=== PATIENT | female | born 1980 | race Caucasian/White ===

== ENCOUNTER 2024-04-13 13:42 | Outpatient (REF) | payer OTHER, SELFPAY ==
[2024-04-13 14:30] LABS: Internal Control Within Normal Limits; SARS-CoV-2 Ag POSITIVE (NEGATIVE)
== END 2024-04-13 13:43 | disposition home or self-care (01) ==
LOC: LAB 13:42
PROVIDERS: PCP Nurse Practitioner Family; Visit Provider Nurse Practitioner Family
DX: B34.9 Viral infection, unspecified (principal)
CPT/HCPCS: 87811

== ENCOUNTER 2024-06-30 06:42 | Outpatient (OUT) | payer OTHER, SELFPAY ==
--- OUTSIDE RECORDS SUMMARY | 2024-06-30 06:44 | XMS_ITS | CCD ---
Author Organization [facility] Care Team Providers Care Baseball Player Name Role Phone NO FAMILY, PHYSICIAN Primary Care Provider Unava MD Colton Banerjee Emergency Provider [phone] DO Zeke Leija Emergency Provider MD Nigel Jason Admit Provider MD Nigel Jason Attending Provider Nigel Jason Admitting Unavailable Nigel Jason Attending Unavailable NO FAMILY, PHYSICIAN Primary Care Unavailable Colton Rushing Attending Unavailable NO FAMILY, PHYSICIAN Primary Care Unavailable Colton Rushing Admitting Unavailable Problems Active Problems Problem Classification Problem Date Documented Da te Episodic/Chronic Anxiety disorders (4 sources) Anxiety; Translations: [Anxiety disorder, unspecified] Onset: 05-13-2022 05-13-2022 Chronic Mood disorders (4 sources) Depressive disorder; Translations: [Depression] Onset: 05-13-2022 05-11-2022 Chronic Mood disorders (1 source) Mood disorders; Translations: [Depression, unspecified] Onset: 05-13-2022 Past or Other Problems Problem Classification Problem Date Documented Da te Episodic/Chronic Suicide and intentional self-inflicted injury (4 sources) Suicidal thoughts; Translations: [Suicidal ideations] Onset: 05-13-2022 05-11-2022 Episodic Results Test Name Value Interpretation Reference Range Facility ECG 12 lead ECGon 05-14-2022 ECG 12 lead ECG [facility] [place] [address] [place] [address] Electrocardiograph Report Signed Patient: Cecile Benitez MR#: [id number] : [id number] Acct:[id number] Age/Sex: 42 / F ADM Date: 05/13/22 Loc: Room: [address] [place] [address] Type: DIS IN Attending Dr: Nigel Jason MD Ordering Provider: Nigel Jason MD Date of Service: 05/14/22 ECG/ECG 12 lead ECG: baseline for antipsychotics Copies to: Test Reason : Blood Pressure : / mmHG Vent. Rate : 052 BPM Atrial Rate : 052 BPM P-R Int : 132 ms QRS Dur : 084 ms QT Int : 410 ms P-R-T Axes : 038 073 049 degrees QTc Int : 381 ms Sinus bradycardia Otherwise normal ECG No previous ECGs available Confirmed by ARTEM GANN MD ([id number]) on 05/15/2022 7:56:35 AM Referred By: Electronically Signed By:ARTEM GANN MD Transcribed By: MUS Signed By Artem Gann MD [id number] [facility] Lipid Panelon 05-14-2022 Cholesterol [Mass/Vol] 207 mg/dL High 140-200 [facility] Comment on above: Result Comment: Chol less than 200 mg/dl low risk Chol 201-239 mg/dl borderline risk Chol 240 mg/dl and greater high risk Performed By: #### C OVID-19 CHELY SOFIANEG #### [facility] [address] Cholesterol in HDL [Mass/Vol] 41 mg/dL Normal 35-85 [facility] Comment on above: Result Comment: HDL CHOL ATP-III CLASSIFICATION Cardiovascular Risk HDL > or equal to 60 mg/dL LOW HDL < 40 mg/dL HIGH Performed By: #### C OVID-19 CHELY SOFIANEG #### [facility] [address] [place] [id number] [facility] Cholesterol.total/Katie sterol in HDL [Mass ratio] 5.0 {ratio} Normal <5.0 [facility] Comment on above: Performed By: #### C OVID-19 CHELY SOFIANEG #### [facility] [address] [place] [id number] [place] LDL Cholesterol,Calculated 135 mg/dL High 0-100 [facility] Comment on above: Result Comment: LDL ATP III CLASSIFICATION LDL less than 100 mg/dL Optimal LDL 100-129 mg/dL Near or above optimal LDL 130-159 mg/dL Borderline high LDL 160-189 mg/dL High LDL greater than 189 mg/dL Very high Performed By: #### C OVID-19 CHELY SOFIANEG #### [facility] [address] [place] [address] Triglyceride w/Reflex 153 mg/dL High 35-149 [facility] Comment on above: Result Comment: TRIG ATP III CLASSIFICATION TRIG less than 150 mg/dL Normal TRIG 150-199 mg/dL Borderline high TRIG 200-500 mg/dL High TRIG greater than 500 mg/dL Very high Standard traceable to the Center for Disease Conrtrol and Prevention (CDC) test method. Performed By: #### C OVID-19 CHELY SOFIANEG #### [address] VLDL CHOLESTEROL 30 mg/dL Normal [facility] Comment on above: Performed By: #### C OVID-19 CHELY SOFIANEG #### [address] Thyroid Stim Hormone w/Rflxo n 05-14-2022 Thyroid Stim Hormone w/Rflx 1.05 u[iU]/mL Normal 0.45-5.33 [facility] Comment on above: Performed By: #### C OVID-19 CHELY SOFIANEG #### [address] Vitamin D 25 Hydroxy Totalon 05-14-2022 Vitamin D 25 Hydroxy Total 21.9 ng/mL Low 30-100 [facility] Comment on above: Result Comment: HANSEL MIN D STATUS 25(OH)VITAMIN D RANGE (ng/mL) Deficient <20 Insufficient 20 to <30 Sufficient 30 to 100 Reference: Jean Paul MF,Jasmine NC, Tej-Harpal MCDERMOTT, et al. Evaluation,treatment, and prevention of vitamin D deficiency; an Endocrine Society clinical practice guideline. JCEM. 2010; 96(7):1911-30. PERFORMED BY: [place] [address] PATHOLOGIST CNP WALTER CEE M.D. Performed By: #### C OVID-19 CHELY SOFIANEG #### [facility] [address] [place] [id number] [facility] Amphetamine Screen Ql (U)Ord ered By: Zeke Leija on 05-13-2022 Amphetamines Ql (U) Negative Negative [facility] Barbiturates [Presence] in U rineOrdered By: Zeke Leija on 05-13-2022 Barbiturates Ql (U) Negative Negative [facility] Benzodiazepines [Presence] i n UrineOrdered By: Zeke Leija on 05-13-2022 Benzodiazepines Ql (U) Negative Negative [facility] COVID-19 Antigenon 2 COVID-19 Antigen Healthcare Worker?: N Reference Range: Negative Negative results, from patients with symptom onset beyond five days, should be treated as presumptive and confirmation with a molecular assay, if necessary, for patient management, may be performed. Negative results do not rule out COVID-19 and should not be used as the sole basis for treatment or patient management decisions, including infection control decisions. Negative results should be considered in the context of a patient's recent exposures, history and the presence of clinical signs and symptoms consistent with COVID-19. The Chely SARS Antigen RASHAUN does not differentiate between SARS-CoV and SARS-CoV-2. This test was developed and its performance characteristic determined by [facility] and validated at [facility]. This test has not been FDA cleared or approved. This test has been authorized by FDA under an Emergency Use Authorization (EUA). This test has been validated in accordance with the FDA's Guidance Document (Policy for Diagnostics Testing in Laboratories Certified to Perform High Complexity Testing under CLIA prior to Emergency Use Authorization for Coronavirus Disease-2019 during the Public Health Emergency) issued on November 25, 2019. This test is only authorized for the duration of time the declaration that circumstances exist justifying the authorization of the emergency use of in vitro diagnostic tests for detection of SARS-CoV-2 virus and/or diagnosis of COVID-19 infection under section 564(b)(1) of the Act, 21 U.S.C. 360bbb-3(b)(1), unless the authorization is terminated or revoked sooner. SARS-CoV+SARS-CoV-2 (COVID-19) Ag [Presence] in Respiratory specimen by Rapid immunoassay Negative for SARS Antigen by RASHAUN PERFORMED BY: [place] [address] PATHOLOGIST CNP WALTER CEE M.D. Normal [facility] Comment on above: Performed By: #### C OVID-19 CHELY, SOFIANEG #### [facility] [address] [place] [address] [place] COVID-19 SOFIAOrdered By: Bartolo Leija on 05-13-2022 SARS-CoV+SARS-CoV-2 (COVID-19) Ag IA.rapid Ql (Resp) Negative Negative [facility] Comment on above: This is a duplicate Chely SARS Antigen (RASHAUN) result to be used for statistical tracking purpose only. Cannabinoids [Presence] in U rine by Screen methodOrdered By: Zeke Leija on 05-13-2022 Cannabinoids Screen Ql (U) Negative Negative [facility] Comment on above: These are unconfirme d results and should not be used for legal purposes. Drug Cut-Off Concentration: AMPH 1000 ng/mL NIMISHA 200 ng/mL NEELA 200 ng/mL COCM 300 ng/mL OP 300 ng/mL PCP 25 ng/mL THC 20 ng/mL Drug Screen,Urineon 05-13-20 22 Amphetamine Screen,Urine Negative Normal Negative [facility] Comment on above: Performed By: #### C OVID-19 CHELY, SOFIANEG #### [facility] [address] [place] [address] [place] Barbiturate Screen,Urine Negative Normal Negative [facility] Comment on above: Performed By: #### C OVID-19 CHELY, SOFIANEG #### [facility] [address] [place] [address] [place] Benzodiazepines Screen,Urine Negative Normal Negative [facility] Comment on above: Performed By: #### C OVID-19 CHELY, SOFIANEG #### [facility] [address] [place] [address] [place] Cannabinoid Screen,Urine Negative Normal Negative [facility] Comment on above: Result Comment: Thes e are unconfirmed results and should not be used for legal purposes. Drug Cut-Off Concentration: AMPH 1000 ng/mL NIMISHA 200 ng/mL NEELA 200 ng/mL COCM 300 ng/mL OP 300 ng/mL PCP 25 ng/mL THC 20 ng/mL PERFORMED BY: [place] [address] PATHOLOGIST CNP WALTER CEE M.D. Performed By: #### C OVID-19 CHELY, SOFIANEG #### [facility] [address] [place] [address] Cocaine Screen,Urine Negative Normal Negative [facility] Comment on above: Performed By: #### C OVID-19 CHELY, SOFIANEG #### [facility] [address] [place] [address] Opiate Screen,Urine Negative Normal Negative [facility] Comment on above: Performed By: #### C OVID-19 CHELY, SOFIANEG #### [address] Phencyclidine Screen,Urine Negative Normal Negative [facility] Comment on above: Performed By: #### C OVID-19 CHELY, SOFIANEG #### [facility] [address] [place] [address] Laboratory - Drug toxicology Ordered By: Zeke Leija on 05-13-2022 Opiates Ql (U) Negative Negative [facility] No Panel InformationOrdered By: Zeke Leija on 05-13-2022 SARS Antigen (LFIA) [facility] Phencyclidine Screen Ql (U)O rdered By: Zeke Leija on 05-13-2022 Phencyclidine Ql (U) Negative Negative [facility] Chely Ag Negativeon 05-13-20 22 Chely Ag Negative Negative Normal Negative [facility] Comment on above: Result Comment: This is a duplicate Chely SARS Antigen (RASHAUN) result to be used for statistical tracking purpose only. PERFORMED BY: [place] [address] PATHOLOGIST CNP WALTER CEE M.D. Performed By: #### C OVID-19 CHELY, SOFIANEG #### [facility] [address] [place] [address] Urine cocaine detectionOrder ed By: Zeke Leija on 05-13-2022 Cocaine Ql (U) Negative Negative [facility] Albumin [Mass/volume] in Ser um or PlasmaOrdered By: Colton Rushing on 05-11-2022 Albumin [Mass/Vol] 4.3 g/dL Normal 3.2-5.5 [facility] Comment on above: Performed By: #### C BC, ETOH, CMP #### [address] Amphetamine Screen Ql (U)Ord ered By: Colton Rushing on 05-11-2022 Amphetamines Ql (U) Negative Negative [facility] Automated basophil %Ordered By: Colton Rushing on 05-11-2022 Basophils/100 WBC (Bld) 0.4 % Normal . [facility] Comment on above: Performed By: #### C BC, ETOH, CMP #### [address] Automated basophil countOrde red By: Colton Rushing on 05-11-2022 Basophils (Bld) [#/Vol] 0.0 10*3/uL Normal 0.0-0.2 [facility] Comment on above: Result Comment: PERF ORMED BY: [place] [address] PATHOLOGIST CNP WALTER CEE M.D. Performed By: #### C BC, ETOH, CMP #### [address] Automated blood lymphocyte c ount (number/volume)Ordered By: Colton Rushing on 05-11-2022 Lymphocytes (Bld) [#/Vol] 1.4 10*3/uL Normal 1.00-4.8 [facility] Comment on above: Performed By: #### C BC, ETOH, CMP #### [address] Automated blood lymphocyte c ount as percentage of total leukocytesOrdered By: Cloton Rushing on 05-11-2022 Lymphocytes/100 WBC (Bld) 14.8 % Normal . [facility] Comment on above: Performed By: #### C BC, ETOH, CMP #### [address] Automated blood monocyte cou ntOrdered By: Colton Rushing on 05-11-2022 Monocytes (Bld) [#/Vol] 0.6 10*3/uL Normal 0.0-0.8 [facility] Comment on above: Performed By: #### C BC, ETOH, CMP #### [address] Automated blood platelet cou nt (count/volume)Ordered By: Colton Rushing on 05-11-2022 Platelets (Bld) [#/Vol] 344 10*3/uL Normal 150-450 [facility] Comment on above: Performed By: #### C BC, ETOH, CMP #### [address] Automated blood platelet augustine n volume measurementOrdered By: Colton Rushing on 05-11-2022 Platelet mean volume (Bld) [Entitic vol] 8.1 fL Normal 6.3-10.7 [facility] Comment on above: Performed By: #### C BC, ETOH, CMP #### [address] Automated eosinophil %Ordere d By: Colton Rushing on 05-11-2022 Eosinophils/100 WBC (Bld) 0.2 % Normal . [facility] Comment on above: Performed By: #### C BC, ETOH, CMP #### [address] Automated eosinophil countOr dered By: Colton Rushing on 05-11-2022 Eosinophils (Bld) [#/Vol] 0.0 10*3/uL Normal 0.0-0.45 [facility] Comment on above: Performed By: #### C BC, ETOH, CMP #### [address] Automated erythrocyte distri bution width ratioOrdered By: Colton Rushing on 05-11-2022 Erythrocyte distribution width (RBC) [Ratio] 13.6 % Normal 11.9-15.3 [facility] Comment on above: Performed By: #### C BC, ETOH, CMP #### [address] Automated erythrocyte mean c orpuscular hemoglobin (mass per erythrocyte)Ordered By: Colton Rushing on 05-11-2022 MCH (RBC) [Entitic mass] 29.0 pg Normal 24.7-34.3 [facility] Comment on above: Performed By: #### C BC, ETOH, CMP #### [address] Automated erythrocyte mean c orpuscular volumeOrdered By: Colton Rushing on 05-11-2022 MCV (RBC) [Entitic vol] 86.4 fL Normal 80-100 [facility] Comment on above: Performed By: #### C BC, ETOH, CMP #### [address] Automated erythrocytes count in urine sediment (number/area)Ordered By: Colton Rushing on 05-11-2022 RBC Auto (Urine sed) [#/Area] 1-2 [HPF] 0-4 [facility] Automated leukocytes count i n urine sediment (number/area)Ordered By: Colton Rushing on 05-11-2022 WBC Auto (Urine sed) [#/Area] 50-100 [HPF] 0-4 [facility] Automated monocyte %Ordered By: Colton Rushing on 05-11-2022 Monocytes/100 WBC (Bld) 6.4 % Normal . [facility] Comment on above: Performed By: #### C BC, ETOH, CMP #### [address] Automated neutrophil %Ordere d By: Colton Rushing on 05-11-2022 Neutrophils/100 WBC (Bld) 78.2 % Normal . [facility] Comment on above: Performed By: #### C BC, ETOH, CMP #### [address] Barbiturates [Presence] in U rineOrdered By: Colton Rushing on 05-11-2022 Barbiturates Ql (U) Negative Negative [facility] Benzodiazepines [Presence] i n UrineOrdered By: Colton Rushing on 05-11-2022 Benzodiazepines Ql (U) Negative Negative [facility] Bilirubin Test strip Ql (U)O rdered By: Colton Rushing on 05-11-2022 Bilirubin Ql (U) Negative Negative [facility] Blood erythrocytes automated count (number/volume)Ordered By: Colton Rushing on 05-11-2022 RBC (Bld) [#/Vol] 5.24 10*6/uL High 3.60-5.00 [facility] Comment on above: Performed By: #### C BC, ETOH, CMP #### [address] Blood hemoglobin measurement (mass/volume)Ordered By: Colton Rushing on 05-11-2022 Hemoglobin (Bld) [Mass/Vol] 15.2 g/dL Normal 11.8-15.4 [facility] Comment on above: Performed By: #### C BC, ETOH, CMP #### [address] Blood leukocytes automated c ount (number/volume)Ordered By: Colton Rushing on 05-11-2022 WBC (Bld) [#/Vol] 9.6 10*3/uL Normal 4.5-11.0 [facility] Comment on above: Performed By: #### C BC, ETOH, CMP #### [address] Blood neutrophil count by au tomated method (number/volume)Ordered By: Colton Rushing on 05-11-2022 Neutrophils (Bld) [#/Vol] 7.5 10*3/uL Normal 1.8-7.7 [facility] Comment on above: Performed By: #### C BC, ETOH, CMP #### [address] COVID-19 Antigenon 2 COVID-19 Antigen Healthcare Worker?: N Reference Range: Negative Negative results, from patients with symptom onset beyond five days, should be treated as presumptive and confirmation with a molecular assay, if necessary, for patient management, may be performed. Negative results do not rule out COVID-19 and should not be used as the sole basis for treatment or patient management decisions, including infection control decisions. Negative results should be considered in the context of a patient's recent exposures, history and the presence of clinical signs and symptoms consistent with COVID-19. The Chely SARS Antigen RASHAUN does not differentiate between SARS-CoV and SARS-CoV-2. This test was developed and its performance characteristic determined by [facility] and validated at [facility]. This test has not been FDA cleared or approved. This test has been authorized by FDA under an Emergency Use Authorization (EUA). This test has been validated in accordance with the FDA's Guidance Document (Policy for Diagnostics Testing in Laboratories Certified to Perform High Complexity Testing under CLIA prior to Emergency Use Authorization for Coronavirus Disease-2019 during the Public Health Emergency) issued on November 25, 2019. This test is only authorized for the duration of time the declaration that circumstances exist justifying the authorization of the emergency use of in vitro diagnostic tests for detection of SARS-CoV-2 virus and/or diagnosis of COVID-19 infection under section 564(b)(1) of the Act, 21 U.S.C. 360bbb-3(b)(1), unless the authorization is terminated or revoked sooner. SARS-CoV+SARS-CoV-2 (COVID-19) Ag [Presence] in Respiratory specimen by Rapid immunoassay Negative for SARS Antigen by RASHAUN PERFORMED BY: [place] [address] PATHOLOGIST CNP WALTER CEE M.D. [facility] Comment on above: Performed By: #### S OPAL, COVID-19 CHELY #### [address] COVID-19 SOFIAOrdered By: Kayla Rushing on 05-11-2022 SARS-CoV+SARS-CoV-2 (COVID-19) Ag IA.rapid Ql (Resp) Negative Negative [facility] Comment on above: This is a duplicate Chely SARS Antigen (RASHAUN) result to be used for statistical tracking purpose only. Cannabinoids [Presence] in U rine by Screen methodOrdered By: Colton Rushing on 05-11-2022 Cannabinoids Screen Ql (U) Negative Negative [facility] Comment on above: These are unconfirme d results and should not be used for legal purposes. Drug Cut-Off Concentration: AMPH 1000 ng/mL NIMISHA 200 ng/mL NEELA 200 ng/mL COCM 300 ng/mL OP 300 ng/mL PCP 25 ng/mL THC 20 ng/mL Casts typing in urine sedime nt by light microscopyOrdered By: Colton Сергей on 05-11-2022 Casts LM Nom (Urine sed) None seen [LPF] None Seen [facility] Color Auto (U)Ordered By: Kayla Rushing on 05-11-2022 Color (U) Yellow Yellow [facility] Complete Blood Count Auto Di ffon 05-11-2022 Mean Corpuscular HGB Conc 33.6 g/dL Normal 32.0-35.0 [facility] Comment on above: Performed By: #### C BC, ETOH, CMP #### [address] Complete Blood Count Auto Di ffOrdered By: Colton Rushing on 05-11-2022 Nucleated RBC/100 WBC (Bld) [Ratio] 0.1 % Normal 0-0.5 [facility] Comment on above: Performed By: #### C BC, ETOH, CMP #### [facility] [address] [place] [address] Comprehensive Metabolic Pane oralia 05-11-2022 ALT [Catalytic activity/Vol] 29 U/L Normal 10-60 [facility] Comment on above: Performed By: #### C BC, ETOH, CMP #### [facility] [address] [place] [address] [place] Creatinine Clr Calc Pharmacy 71.91 Normal [facility] Comment on above: Result Comment: PERF ORMED BY: [place] [address] PATHOLOGIST CNP WALTER CEE M.D. Performed By: #### C BC, ETOH, CMP #### [address] Estimated GFR ( Kirsten > 60 Normal [facility] Comment on above: Result Comment: GFR estimated reference range: According to KDOQI guidelines, <60 ml/min/1.73m2 is sufficient to diagnose a patient with chronic kidney disease. Performed By: #### C BC, ETOH, CMP #### [facility] [address] [place] [address] [place] Estimated GFR (Non- Am 58 Normal [facility] Comment on above: Performed By: #### C BC, ETOH, CMP #### [facility] [address] [place] [address] [place] Dipstick and Microscopicon 0 05-11-2022 Appearance (U) Cloudy Critically abnormal Clear [facility] Comment on above: Order Comment: Name Collection Type:: Clean-Voided Midstream Performed By: #### U RDS, CUU, UHCG, ADDONUAPLUS #### [address] Bacteria,Urine 1+ High None Seen [facility] Comment on above: Order Comment: Name Collection Type:: Clean-Voided Midstream Performed By: #### U RDS, CUU, UHCG, ADDONUAPLUS #### [facility] [address] [place] [address] [place] Bilirubin,Urine Negative Normal Negative [facility] Comment on above: Order Comment: Name Collection Type:: Clean-Voided Midstream Performed By: #### U RDS, CUU, UHCG, ADDONUAPLUS #### [facility] [address] [place] [address] [place] Color (U) Yellow Normal Yellow [facility] Comment on above: Order Comment: Name Collection Type:: Clean-Voided Midstream Performed By: #### U RDS, CUU, UHCG, ADDONUAPLUS #### [facility] [address] [place] [address] [place] Glucose Ql (U) Normal Normal Normal [facility] Comment on above: Order Comment: Name Collection Type:: Clean-Voided Midstream Performed By: #### U RDS, CUU, UHCG, ADDONUAPLUS #### [facility] [address] [place] [address] [place] Hyaline Casts,Urine 0-8 Normal 0-8 [facility] Comment on above: Order Comment: Name Collection Type:: Clean-Voided Midstream Performed By: #### U RDS, CUU, UHCG, ADDONUAPLUS #### [facility] [address] Ketones Ql (U) 1+ High Negative [facility] Comment on above: Order Comment: Name Collection Type:: Clean-Voided Midstream Performed By: #### U RDS, CUU, UHCG, ADDONUAPLUS #### [facility] [address] [place] [address] Leukocyte esterase Test strip Ql (U) 4+ High Negative [facility] Comment on above: Order Comment: Name Collection Type:: Clean-Voided Midstream Performed By: #### U RDS, CUU, UHCG, ADDONUAPLUS #### [facility] [address] [place] [address] Mucus,Urine 3+ Critically abnormal [facility] Comment on above: Order Comment: Name Collection Type:: Clean-Voided Midstream Performed By: #### U RDS, CUU, UHCG, ADDONUAPLUS #### [facility] [address] [place] [address] [place] Nitrite,Urine Negative Normal Negative [facility] Comment on above: Order Comment: Name Collection Type:: Clean-Voided Midstream Performed By: #### U RDS, CUU, UHCG, ADDONUAPLUS #### [facility] [address] [place] [address] [place] Occult Blood,Urine Trace High Negative [facility] Comment on above: Order Comment: Name Collection Type:: Clean-Voided Midstream Performed By: #### U RDS, CUU, UHCG, ADDONUAPLUS #### [facility] [address] [place] [address] Other Casts,Urine None Seen Normal None Seen [facility] Comment on above: Order Comment: Name Collection Type:: Clean-Voided Midstream Performed By: #### U RDS, CUU, UHCG, ADDONUAPLUS #### [facility] [address] [place] [address] [place] pH (U) 5.5 [pH] Normal 5.0-9.0 [facility] Comment on above: Order Comment: Name Collection Type:: Clean-Voided Midstream Performed By: #### U RDS, CUU, UHCG, ADDONUAPLUS #### [facility] [address] [place] [address] Protein,Urine Negative Normal Negative [facility] Comment on above: Order Comment: Name Collection Type:: Clean-Voided Midstream Performed By: #### U RDS, CUU, UHCG, ADDONUAPLUS #### [facility] [address] [place] [address] RBC,Urine 1-2 Normal 0-4 [facility] Comment on above: Order Comment: Name Collection Type:: Clean-Voided Midstream Performed By: #### U RDS, CUU, UHCG, ADDONUAPLUS #### [facility] [address] [place] [address] Specificy [place],Urine 1.011 Normal 1.001-1.030 [facility] Comment on above: Order Comment: Name Collection Type:: Clean-Voided Midstream Performed By: #### U RDS, CUU, UHCG, ADDONUAPLUS #### [facility] [address] [place] [address] Squamous Epithelial Cell,Urine 10-19 High 0-2 [facility] Comment on above: Order Comment: Name Collection Type:: Clean-Voided Midstream Performed By: #### U RDS, CUU, UHCG, ADDONUAPLUS #### [facility] [address] [place] [address] Urobilinogen,Urine Normal Normal Normal [facility] Comment on above: Order Comment: Name Collection Type:: Clean-Voided Midstream Performed By: #### U RDS, CUU, UHCG, ADDONUAPLUS #### [facility] [address] [place] [address] WBC,Urine 50-100 High 0-4 [facility] Comment on above: Order Comment: Name Collection Type:: Clean-Voided Midstream Performed By: #### U RDS, CUU, UHCG, ADDONUAPLUS #### [address] Yeast,Urine None Seen Normal None Seen [facility] Comment on above: Order Comment: Name Collection Type:: Clean-Voided Midstream Performed By: #### U RDS, CUU, UHCG, ADDONUAPLUS #### [address] Drug Screen,Urineon 05-11-20 Amphetamine Screen,Urine Negative Normal Negative [facility] Comment on above: Performed By: #### U RDS, CUU, UHCG, ADDONUAPLUS #### [address] Barbiturate Screen,Urine Negative Normal Negative [facility] Comment on above: Performed By: #### U RDS, CUU, UHCG, ADDONUAPLUS #### [address] Benzodiazepines Screen,Urine Negative Normal Negative [facility] Comment on above: Performed By: #### U RDS, CUU, UHCG, ADDONUAPLUS #### [address] Cannabinoid Screen,Urine Negative Normal Negative [facility] Comment on above: Result Comment: Thes e are unconfirmed results and should not be used for legal purposes. Drug Cut-Off Concentration: AMPH 1000 ng/mL NIMISHA 200 ng/mL NEELA 200 ng/mL COCM 300 ng/mL OP 300 ng/mL PCP 25 ng/mL THC 20 ng/mL PERFORMED BY: [place] [address] PATHOLOGIST CNP WALTER CEE M.D. Performed By: #### U RDS, CUU, UHCG, ADDONUAPLUS #### [address] Cocaine Screen,Urine Negative Normal Negative [facility] Comment on above: Performed By: #### U RDS, CUU, UHCG, ADDONUAPLUS #### [facility] [address] Opiate Screen,Urine Negative Normal Negative [facility] Comment on above: Performed By: #### U RDS, CUU, UHCG, ADDONUAPLUS #### [facility] [address] Phencyclidine Screen,Urine Negative Normal Negative [facility] Comment on above: Performed By: #### U RDS, CUU, UHCG, ADDONUAPLUS #### [facility] [address] Estimated glomerular filtrat ion rate (GFR) non- AmericanOrdered By: Colton Rushing on 05-11-2022 GFR/1.73 sq M.predicted among non-blacks MDRD (S/P/Bld) [Vol rate/Area] 58 mL/Min [facility] Ethyl Alcohol Profileon 04-25 Percent Ethanol Not performed Normal [facility] Comment on above: Result Comment: PERF ORMED BY: [place] [address] PATHOLOGIST CNP WALTER CEE M.D. Performed By: #### C BC, ETOH, CMP #### [facility] [address] [place] [address] HCG ( test) IA.rapi d Ql (U)Ordered By: Colton Rushing on 05-11-2022 HCG ( test) Ql (U) Negative [facility] HCG,Urineon 05-11-2022 Beta HCG ( test) Ql (U) Negative Normal [facility] Comment on above: Order Comment: Name Collection Type:: Clean-Voided Midstream Result Comment: PERF ORMED BY: [place] [address] PATHOLOGIST CNP WALTER CEE M.D. Performed By: #### C OVID-19 CHELY, SOFIANEG #### [facility] [address] [place] [address] Hematocrit [Volume Fraction] of Blood by Automated countOrdered By: Colton Rushing on 05-11-2022 Hematocrit (Bld) [Volume fraction] 45.2 % Normal 34.0-46.4 [facility] Comment on above: Performed By: #### C BC, ETOH, CMP #### [facility] [address] Ketones Auto test strip (U) [Mass/Vol]Ordered By: Colton Rushing on 05-11-2022 Ketones (U) [Mass/Vol] 1+ Negative [facility] - Drug toxicology Ordered By: Colton Rushing on 05-11-2022 Opiates Ql (U) Negative Negative [facility] - UrinalysisOrder ed By: Colton Rushing on 05-11-2022 Hyaline casts LM Ql (Urine sed) 0-8 [LPF] 0-8 [facility] MCHC Auto (RBC) [Mass/Vol]Or dered By: Colton Rushing on 05-11-2022 MCHC (RBC) [Mass/Vol] 33.6 g/dL 32.0-35.0 [facility] Mucus LM Ql (Urine sed)Order ed By: Colton Rushing on 05-11-2022 Mucus Ql (Urine sed) 3+ [LPF] [facility] Nitrite Test strip Ql (U)Ord ered By: Colton Rushing on 05-11-2022 Nitrite Ql (U) Negative Negative [facility] No Panel InformationOrdered By: Colton Rushing on 05-11-2022 Estimated GFR () > 60 mL/Min [facility] Comment on above: GFR estimated refere nce range: According to KDOQI guidelines, <60 ml/min/1.73m2 is sufficient to diagnose a patient with chronic kidney disease. Pharmacy Creatinine Clearance (Chem 71.91 [facility] SARS Antigen (LFIA) [facility] Phencyclidine Screen Ql (U)O rdered By: Colton Rushing on 05-11-2022 Phencyclidine Ql (U) Negative Negative [facility] Protein Auto test strip (U) [Mass/Vol]Ordered By: Colton Rushing on 05-11-2022 Protein (U) [Mass/Vol] Negative Negative [facility] Protein [Mass/volume] in Ser um or PlasmaOrdered By: Colton Rushing on 05-11-2022 Protein [Mass/Vol] 7.4 g/dL Normal 6.1-7.9 [facility] Comment on above: Performed By: #### C BC, ETOH, CMP #### [address] Serum globulin measurement b y calculation (mass/volume)Ordered By: Colton Rushing on 05-11-2022 Globulin (S) [Mass/Vol] 3.1 g/dL Normal [facility] Comment on above: Performed By: #### C BC, ETOH, CMP #### [address] Serum or plasma alanine avila otransferase measurement without P-5'-P (enzymatic activiOrdered By: Colton Rushing on 05-11-2022 ALT No additional P-5'-P [Catalytic activity/Vol] 29 U/L 10-60 [facility] Serum or plasma albumin/glob ulin mass ratioOrdered By: Colton Rushing on 05-11-2022 Albumin/Globulin [Mass ratio] 1.4 {ratio} Normal [facility] Comment on above: Performed By: #### C BC, ETOH, CMP #### [address] Serum or plasma alkaline [place] sphatase measurement (enzymatic activity/volume)Ordered By: Colton Rushing on 05-11-2022 ALP [Catalytic activity/Vol] 56 U/L Normal 32-92 [facility] Comment on above: Performed By: #### C BC, ETOH, CMP #### [address] Serum or plasma anion gap de terminationOrdered By: Colton Rushing on 05-11-2022 Anion gap [Moles/Vol] 16.2 mmol/L High 6.0-15.0 [facility] Comment on above: Performed By: #### C BC, ETOH, CMP #### [address] Serum or plasma aspartate am inotransferase measurement (enzymatic activity/volume)Ordered By: Colton Rushing on 05-11-2022 AST [Catalytic activity/Vol] 22 U/L Normal 10-42 [facility] Comment on above: Performed By: #### C BC, ETOH, CMP #### [facility] [address] Serum or plasma calcium alina urement (mass/volume)Ordered By: Colton Rushing on 05-11-2022 Calcium [Mass/Vol] 9.5 mg/dL Normal 8.2-10.2 [facility] Comment on above: Performed By: #### C BC, ETOH, CMP #### [facility] [address] Serum or plasma chloride augustine surement (moles/volume)Ordered By: Colton Rushing on 05-11-2022 Chloride [Moles/Vol] 103 mmol/L Normal 95-114 [facility] Comment on above: Performed By: #### C BC, ETOH, CMP #### [address] Serum or plasma creatinine m easurement with calculation of estimated glomerular filtrOrdered By: Colton Rushing on 05-11-2022 Creatinine [Mass/Vol] 1.03 mg/dL Normal 0.44-1.03 [facility] Comment on above: Performed By: #### C BC, ETOH, CMP #### [address] Serum or plasma ethanol alina urement (mass/volume)Ordered By: Colton Rushing on 05-11-2022 Ethanol [Mass/Vol] mg/dL Normal [facility] Comment on above: Performed By: #### C BC, ETOH, CMP #### [address] Ethanol [Mass/Vol] TNP [facility] Comment on above: Test not performed Serum or plasma glucose alina urement (mass/volume)Ordered By: Colton Rushing on 05-11-2022 Glucose [Mass/Vol] 112 mg/dL High 70-100 [facility] Comment on above: ADA recommended refe rence range Random Glucose Reference Range is dependent on time and content of last meal. Glucose of more than 200 mg/dL in a nonstressed, ambulatory subject supports the diagnosis of Diabetes Mellitus. Result Comment: [place] Glucose Reference Range is dependent on time and content of last meal. Glucose of more than 200 mg/dL in a nonstressed, ambulatory subject supports the diagnosis of Diabetes Mellitus. ADA recommended reference range Performed By: #### C BC, ETOH, CMP #### [address] Serum or plasma potassium me asurement (moles/volume)Ordered By: Colton Rushing on 05-11-2022 Potassium [Moles/Vol] 3.5 mmol/L Normal 3.5-5.1 [facility] Comment on above: Performed By: #### C BC, ETOH, CMP #### [address] Serum or plasma sodium measu rement (moles/volume)Ordered By: Colton Rushing on 05-11-2022 Sodium [Moles/Vol] 136 mmol/L Normal 136-146 [facility] Comment on above: Performed By: #### C BC, ETOH, CMP #### [address] Serum or plasma total biliru bin measurement (mass/volume)Ordered By: Colton Rushing on 05-11-2022 Bilirubin [Mass/Vol] 1.0 mg/dL Normal 0.3-1.2 [facility] Comment on above: Performed By: #### C BC, ETOH, CMP #### [address] Serum or plasma total carbon dioxide measurement (moles/volume)Ordered By: Colton Rushing on 05-11-2022 CO2 [Moles/Vol] 20.3 mmol/L Low 22.0-30.0 [facility] Comment on above: Performed By: #### C BC, ETOH, CMP #### [address] Serum or plasma urea nitroge n measurement (mass/volume)Ordered By: Colton Rushing on 05-11-2022 Urea nitrogen [Mass/Vol] 6 mg/dL Low 9-23 [facility] Comment on above: Performed By: #### C BC, ETOH, CMP #### [facility] [address] [place] Ag Negativeon 05-11-20 [place] Ag Negative Negative Normal Negative [facility] Comment on above: Result Comment: This is a duplicate [place] SARS Antigen (RASHAUN) result to be used for statistical tracking purpose only. PERFORMED BY: [place] [address] PATHOLOGIST CNP WALTER CEE M.D. Performed By: #### S OFIANEG, COVID-19 CHELY #### [facility] [address] [place] [address] Specific gravity Auto test s trip (U) [Rel density]Ordered By: Colton Rushing on 05-11-2022 Specific gravity (U) [Rel density] 1.011 1.001-1.030 [facility] Squamous epithelial cells de tection in urine sediment by light microscopyOrdered By: Colton Rushing on 05-11-2022 Epithelial cells.squamous LM Ql (Urine sed) 10-19 [HPF] 0-2 [facility] Urine Cultureon 05-11-2022 Bacteria identified Cx Nom (U) >100,000 colonies/ml mixed bacterial skin contaminants 2 Days PERFORMED BY: [place] [address] PATHOLOGIST CNP WALTER CEE M.D. Normal [facility] Comment on above: Performed By: #### C OVID-19 CHELY, SOFIANEG #### [facility] [address] [place] [address] Urine bacteria detection by automated methodOrdered By: Colton Rushing on 05-11-2022 Bacteria Auto Ql (U) 1+ None Seen [facility] Urine clarity by refractomet ry automatedOrdered By: Colton Rushing on 05-11-2022 Clarity Refractometry automated (U) Cloudy Clear [facility] Urine cocaine detectionOrder ed By: Colton Rushing on 05-11-2022 Cocaine Ql (U) Negative Negative [facility] Urine glucose measurement by automated test strip (mass/volume)Ordered By: Colton Rushing on 05-11-2022 Glucose Auto test strip (U) [Mass/Vol] Normal mg/dL Normal [facility] Urine hemoglobin detection b y automated test stripOrdered By: Colton Rushing on 05-11-2022 Hemoglobin Auto test strip Ql (U) Trace Negative [facility] Urine leukocyte esterase det ection by automated test stripOrdered By: Colton Rushing on 05-11-2022 Leukocyte esterase Auto test strip Ql (U) 4+ Negative [facility] Urobilinogen Auto test strip (U) [Mass/Vol]Ordered By: Colton Rushing on 05-11-2022 Urobilinogen (U) [Mass/Vol] Normal mg/dL Normal [facility] Yeast detection in urine sed iment by light microscopyOrdered By: Colton Rushing on 05-11-2022 Yeast LM Ql (Urine sed) None seen [HPF] None Se en [facility] pH Auto test strip (U)Ordere d By: Colton Rushing on 05-11-2022 pH (U) 5.5 [pH] 5.0-9.0 [facility] Screening Mammogram, Charanjit ledbetter 05-03-2022 Screening Mammogram, Bilateral CLINICAL HISTORY: Baseline Screening Mammogram. COMPARISON: None. TECHNIQUE: 2D and 3D Tomosynthesis of the right and left breasts was performed. FINDINGS: Both breasts are heterogeneously dense with mild asymmetry and scattered coarse dense bursitis microcalcifications. There are no dominant masses, areas of suspicious microcalcifications or areas of architectural distortion identified. No evidence of skin thickening. IMPRESSION: BIRADS 2 : BENIGN FINDINGS, NORMAL INTERVAL FOLLOW UP. Board certified radiologist. Accredited by the ACR and FDA. MAMMOGRAPHY IS VERY IMPORTANT TO YOUR HEALTH. CURRENT [employer] GUIDELINES RECOMMENDS ANNUAL MAMMOGRAPHY BEGINNING AT AGE 39. THIS FACILITY USUALLY USES A REMINDER SYSTEM TO ENSURE ALL POSITIONS RECEIVED REMINDER NOTIFICATIONS AT THE TIME BASED ON THE RECOMMENDATIONS OF THIS EXAM. Report reported and signed by Mychal Carranza on 05/03/2022 1713 Normal [facility] [employer] Vital Signs Date Time Vital Sign Value Performing Clinician Quinton kelly 05-13-2022 18:10-0400 Diastolic blood pressure 89 mm[Hg] PHYSICIAN NO [facility] 05-13-2022 18:10-0400 Heart rate 89 /min PHYSICIAN NO [facility] 05-13-2022 18:10-0400 Respiratory rate 17 /min PHYSICIAN NO [facility] 05-13-2022 18:10-0400 SaO2% (BldA) [Mass fraction] 95 % PHYSICIAN NO [facility] 05-13-2022 18:10-0400 Systolic blood pressure 131 mm[Hg] PHYSICIAN NO [facility] 05-13-2022 17:15-0400 Body height 167.64 cm PHYSICIAN NO [facility] 05-13-2022 17:15-0400 Body temperature 98.8 [degF] PHYSICIAN NO [facility] 05-13-2022 17:15-0400 Body weight 72 kg PHYSICIAN NO [facility] 05-11-2022 17:34-0400 Body height 167.64 cm PHYSICIAN NO [facility] 05-11-2022 17:34-0400 Body temperature 98.9 [degF] PHYSICIAN NO [facility] 05-11-2022 17:34-0400 Body weight 72.75 kg PHYSICIAN NO [facility] 05-11-2022 17:34-0400 Diastolic blood pressure 93 mm[Hg] PHYSICIAN NO [facility] 05-11-2022 17:34-0400 Heart rate 123 /min PHYSICIAN NO [facility] 05-11-2022 17:34-0400 Respiratory rate 20 /min PHYSICIAN NO [facility] 05-11-2022 17:34-0400 SaO2% (BldA) [Mass fraction] 95 % PHYSICIAN NO [facility] 05-11-2022 17:34-0400 Systolic blood pressure 149 mm[Hg] PHYSICIAN NO [facility] Encounters Encounter Date Encounter Type Care Provider Facility Start: 05-13-2022 End: 05-17-2022 Evaluation and management of inpatient Nigelkj Jason Facility:[facility] Start: 05-13-2022 Evaluation and management of inpatient PHYSICIAN NO [facility] Start: 05-11-2022 End: 05-11-2022 Emergency department patient visit Colton Rushing Facility:[facility] Start: 05-11-2022 End: 05-11-2022 Emergency department patient visit PHYSICIAN NO [facility] Procedures Date Procedure Procedure Detail Performing Clinician SARS Antigen (LFIA) PHYSICIA N NO FAMILY SARS Antigen (LFIA) PHYSICIA N NO FAMILY Plan of Treatment Date Care Activity Detail Author Bacteria identified in Urine by Culture [facility] Patient Education Suicide Preven tion Depression, Adult ED [facility] Work Phone: Patient referral [facility] Work Phone: Urine culture Urine Culture [facility] Immunizations Immunization Date Immunization Notes Care Provider Fa cility 05-11-2022 tetanus toxoid, redu leandro diphtheria toxoid, and acellular pertussis vaccine, adsorbed PHYSICIAN NO [facility] Payers Date Payer Category Payer Unknown [id number] 2022 Unknown [id number] 2022 Private Health Insurance [id number] 2022 Self-pay Medicaid [facility] [id number] Unknown [id number] Unknown [id number] Social History Date Type Detail Facility Start: 05-11-2022 End: 05-13-2022 Tobacco smoking status NHIS Smoker (finding) [facility] Start: 1980 Sex Assigned At Female F [facility] Chief complaint+Reason for visit Narrative Note Date & Type Note Facility Chief complaint+Reason for visit Narrative Reason for Visit Acute anxiety Depression Suicidal ideation [facility] Work Phone: Evaluation note Note Date & Type Note Facility Evaluation note No assessment information availa ble [facility] Work Phone: Evaluation note Note Date & Type Note Facility Evaluation note Diagnosis Onset Date Acute anxiety acute Depression acute Suicidal ideation acute [facility] Work Phone: Summary Purpose Family History No Family History Records FoundNo Family History Records Found Advance Directives No Advanced Directives Records Found Advance Directive Response Recorded Date/ Time Advance Directives No April 5:46pm Chief Complaint and Reason for Visit Chief Complaint Mental eval Additional Source Comments INFORMATION SOURCE (unrecogn ized section and content) DATE CREATED AUTHOR 05/04/2022 [facility] Me dical Specialist DATE CREATED AUTHOR AUTHOR'S ORGANIZ ATION 02/22/2023 [facility] Care Teams (unrecognized sec tion and content) Team Status: Inactive Member Role Status Dates PHYSICIAN NO FAMILY Primary Care Provider Active Colton Rushing MD Emergency Provider Active Team Status: Active Member Role Status Dates PHYSICIAN NO FAMILY Primary Care Provider Active Team Status: Active Member Role Status Dates PHYSICIAN NO FAMILY Primary Care Provider Active Zeke Leija DO Emergency Provider Active Nigel Jason MD Admit Provider, Attending Provider Active Goals (unrecognized section and content) Goals may be documented in a n alternate sectionGoals may be documented in an alternate section FOR RECORDS PERTAINING TO PATIENTS WHO ARE OR HAVE BEEN ENROLLED IN A CHEMICAL DEPENDENCY/SUBSTANCEABUSE PROGRAM, SOME INFORMATION MAY BE OMITTED. This clinical summary was aggregated from multiple sources. Caution should be exercised in using it in the provision of clinical care. This summary normalizes information from multiple sources, and as a consequence, information in this document may materially change the coding, format and clinical context of patient data. In addition, data may be omitted in some cases. CLINICAL DECISIONS SHOULD BE BASED ON THE PRIMARY CLINICAL RECORDS. [facility]. provides no warranty or guarantee of the accuracy or completeness of information in this document.
[2024-06-30 06:55] LABS: Basophils Percent Auto 0.7 % (0.2-2.0); Eosinophils Absolute Auto 0.1 10^3/uL (0.0-0.7); Eosinophils Percent Auto 1.8 % (0.9-7.0); Hematocrit 40.2 % (36.0-48.0); Hemoglobin 13.2 g/dL (12.0-16.0); Immature Granulocytes Abs Auto 0.01 10^3/uL (0.00-0.03); Immature Granulocytes Pct Auto 0.2 % (0.0-0.5); Lymphocytes Absolute Auto 1.8 10^3/uL (1.2-3.8); Lymphocytes Percent Auto 32.2 % (20.5-60.0); Mean Corpuscular HGB Conc 32.8 g/dL (29.9-35.2); Mean Corpuscular Hemoglobin 29.4 pg (26.7-34.0); Mean Corpuscular Volume 89.5 fL (81.0-99.0); Mean Platelet Volume 9.3 fL (9.5-13.5); Monocytes Absolute Auto 0.4 10^3/uL (0.3-0.8); Monocytes Percent Auto 6.8 % (1.7-12.0); Neutrophils Absolute Auto 3.2 10^3/uL (1.4-6.5); Neutrophils Percent Auto 58.3 % (43.0-75.0); Platelet Count 288 10^3/uL (150-450); Red Blood Count 4.49 10^6/uL (4.20-5.40); Red Cell Distribution Width 13.5 % (11.0-15.0); White Blood Count 5.4 10^3/uL (4.0-11.0)
[2024-06-30 07:31] LABS: Estimated Average Glucose 103 mg/dL; Glycohemoglobin A1C 5.2 % (4.5-6.2)
[2024-06-30 09:51] LABS: Alanine Aminotransferase 22 U/L (14-59); Albumin Globulin Ratio 0.9; Albumin Level 3.2 g/dL (3.4-5.0); Alkaline Phosphatase 84 U/L (46-116); Anion Gap 19.9; BUN Creatinine Ratio 10.4; Bilirubin Total 0.3 mg/dL (0.2-1.0); Calcium 8.2 mg/dL (8.5-10.1); Carbon Dioxide 20.1 mmol/L (21.0-32.0); Chloride 104 mmol/L (98-107); Chol HDL Ratio 10.6; Cholesterol 296 mg/dL (<=200); Estimated GFR (African America 56 (>=60 mL/min/1.73m^2); Estimated GFR (Non-African Ame 46 (>=60 mL/min/1.73m^2); Free T3 2.56 pg/mL (2.18-3.98); Globulin 3.4 g/dL; Glucose 119 mg/dL (74-106); HDL Cholesterol 28 mg/dL (40-60); Sodium 140 mmol/L (136-145); Thyroid Stimulating Hormone 4.214 uIU/mL (0.358-3.740); Total Protein 6.6 g/dL (6.4-8.2); Triglycerides 1515 mg/dL (<=150)
[2024-06-30 10:19] LABS: Aspartate Amino Transferase 6 U/L (15-37)
[2024-06-30 10:21] LABS: LDL Cholesterol Direct 73 mg/dL
[2024-07-01 11:09] LABS: Insulin 27.3 uIU/mL (2.6-24.9)
== END 2024-06-30 06:43 | disposition home or self-care (01) ==
LOC: LAB 06:42
PROVIDERS: PCP Nurse Practitioner Family; Visit Provider Nurse Practitioner Family
DX: Z00.00 Encounter for general adult medical examination without abnormal findings (principal)
CPT/HCPCS: 36415; 80053; 80061; 83036; 83525; 83721; 84436; 84443; 84481; 85025

== ENCOUNTER 2024-07-20 06:39 | Outpatient (OUT) | payer OTHER, SELFPAY ==
--- OUTSIDE RECORDS SUMMARY | 2024-07-20 06:43 | XMS_ITS | CCD ---
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 Name Role Phone NO FAMILY, PHYSICIAN Primary Care Provider Unava MD Colton Banerjee Emergency Provider [phone] DO Zeke Leija Emergency Provider MD Nigel [...] lead ECGon 05-14-2022 ECG 12 lead ECG [facility] [place] [address] [place] [address] Electrocardiograph Report Signed Patient: Cecile Benitez MR#: [id number] Acct:[id number] Age/Sex: 42 / F ADM Date: 05/13/22 Loc: Room: [address] [place] [address] Type: DIS IN Attending Dr: Nigel Jason [...] By: MUS Signed By Artem Gann MD [id number] [facility] Lipid Panelon 05-14-2022 Cholesterol [Mass/Vol] 207 mg/dL High 140-[address] [facility] Comment on above: Result Comment: Chol less than 200 mg/dl low risk Chol 201-239 mg/dl borderline risk Chol 240 mg/dl and greater high risk Performed By: #### C OVID-19 CHELY SOFIANEG #### [facility] [address] Cholesterol in HDL [Mass/Vol] 41 mg/dL Normal 35-85 [facility] Comment on above: Result Comment: HDL CHOL ATP-III CLASSIFICATION Cardiovascular Risk HDL > or equal to 60 mg/dL LOW HDL < 40 mg/dL HIGH Performed By: #### C OVID-19 CHELY SOFIANEG #### [facility] [address] [place] [id number] [facility] Cholesterol.total/Katie sterol in HDL [Mass ratio] 5.0 {ratio} Normal <5.0 [facility] Comment on above: Performed By: #### C OVID-19 CHELY SOFIANEG #### [facility] [address] [place] [id number] [place] LDL Cholesterol,Calculated 135 mg/dL High 0-100 [facility] Comment on above: Result Comment: LDL ATP III CLASSIFICATION LDL less than 100 mg/dL Optimal LDL 100-129 mg/dL Near or above optimal LDL 130-159 mg/dL Borderline high LDL 160-189 mg/dL High LDL greater than 189 mg/dL Very high Performed By: #### C OVID-19 CHELY SOFIANEG #### [facility] [address] [place] [address] Triglyceride w/Reflex 153 mg/dL High 35-149 [facility] Comment on above: Result Comment: TRIG ATP III CLASSIFICATION TRIG less than 150 mg/dL Normal TRIG 150-199 mg/dL Borderline high TRIG 200-500 mg/dL High TRIG greater than 500 mg/dL Very high Standard traceable to the Center for Disease Conrtrol and Prevention (CDC) test method. Performed By: #### C OVID-19 CHELY SOFIANEG #### [address] VLDL CHOLESTEROL 30 mg/dL Normal [facility] Comment on above: Performed By: #### C OVID-19 CHELY SOFIANEG #### [address] Thyroid Stim Hormone w/Rflxo n 05-14-2022 Thyroid Stim Hormone w/Rflx 1.05 u[iU]/mL Normal 0.45-5.33 [facility] Comment on above: Performed By: #### C OVID-19 CHELY SOFIANEG #### [address] Vitamin D 25 Hydroxy Totalon 05-14-2022 Vitamin D 25 Hydroxy Total 21.9 ng/mL Low 30-100 [facility] Comment on above: Result Comment: HANSEL MIN D STATUS 25(OH)VITAMIN D RANGE (ng/mL) Deficient <20 Insufficient 20 to <30 Sufficient 30 to 100 Reference: Jean Paul MF,Jasmine NC, Tej-Harpal MCDERMOTT, et al. Evaluation,treatment, and prevention of vitamin D deficiency; an Endocrine Society clinical practice guideline. JCEM. 2010; 96(7):1911-30. PERFORMED BY: [place] [address] PATHOLOGIST VENEER JOINTER OPERATOR WALTER CEE M.D. Performed By: #### C OVID-19 CHELY SOFIANEG #### [facility] [address] [place] [id number] [facility] Amphetamine Screen Ql (U)Ord ered By: Zeke Leija on 05-13-2022 Amphetamines Ql (U) Negative Negative [facility] Barbiturates [Presence] in U rineOrdered By: Zeke Leija on 05-13-2022 Barbiturates Ql (U) Negative Negative [facility] Benzodiazepines [Presence] i n UrineOrdered By: Zeke Leija on 05-13-2022 Benzodiazepines Ql (U) Negative Negative [facility] COVID-19 Antigenon 2 COVID-19 Antigen Healthcare [...] developed and its performance characteristic determined by [employer] and validated at [facility]. This test has not been FDA [...] for SARS Antigen by RASHAUN PERFORMED BY: [place] [address] PATHOLOGIST VENEER JOINTER OPERATOR WALTER CEE M.D. Normal [facility] Comment on above: Performed By: #### C OVID-19 CHELY, SOFIANEG #### [facility] [address] [place] [address] [place] COVID-19 SOFIAOrdered By: Bartolo Leija on 05-13-2022 SARS-CoV+SARS-CoV-2 (COVID-19) Ag IA.rapid Ql (Resp) Negative Negative [facility] Comment on above: This is a duplicate Chely SARS Antigen (RASHAUN) result to be used for statistical tracking purpose only. Cannabinoids [Presence] in U rine by Screen methodOrdered By: Zeke Leija on 05-13-2022 Cannabinoids Screen Ql (U) Negative Negative [facility] Comment on above: These are unconfirme d results and should not be used for legal purposes. Drug Cut-Off Concentration: AMPH 1000 ng/mL NIMISHA 200 ng/mL NEELA 200 ng/mL COCM 300 ng/mL OP 300 ng/mL PCP 25 ng/mL THC 20 ng/mL Drug Screen,Urineon 05-13-20 22 Amphetamine Screen,Urine Negative Normal Negative [facility] Comment on above: Performed By: #### C OVID-19 CHELY, SOFIANEG #### [facility] [address] [place] [address] [place] Barbiturate Screen,Urine Negative Normal Negative [facility] Comment on above: Performed By: #### C OVID-19 CHELY, SOFIANEG #### [facility] [address] [place] [address] [place] Benzodiazepines Screen,Urine Negative Normal Negative [facility] Comment on above: Performed By: #### C OVID-19 CHELY, SOFIANEG #### [facility] [address] [place] [address] [place] Cannabinoid Screen,Urine Negative Normal Negative [facility] Comment on above: Result Comment: Thes e are unconfirmed results and should not be used for legal purposes. Drug Cut-Off Concentration: AMPH 1000 ng/mL NIMISHA 200 ng/mL NEELA 200 ng/mL COCM 300 ng/mL OP 300 ng/mL PCP 25 ng/mL THC 20 ng/mL PERFORMED BY: [place] [address] PATHOLOGIST VENEER JOINTER OPERATOR WALTER CEE M.D. Performed By: #### C OVID-19 CHELY, SOFIANEG #### [facility] [address] [place] [address] Cocaine Screen,Urine Negative Normal Negative [facility] Comment on above: Performed By: #### C OVID-19 CHELY, SOFIANEG #### [facility] [address] [place] [address] Opiate Screen,Urine Negative Normal Negative [facility] Comment on above: Performed By: #### C OVID-19 CHELY, SOFIANEG #### [address] Phencyclidine Screen,Urine Negative Normal Negative [facility] Comment on above: Performed By: #### C OVID-19 CHELY, SOFIANEG #### [facility] [address] [place] [address] Laboratory - Drug toxicology Ordered By: Zeke Leija on 05-13-2022 Opiates Ql (U) Negative Negative [facility] No Panel InformationOrdered By: Zeke Leija on 05-13-2022 SARS Antigen (LFIA) [facility] Phencyclidine Screen Ql (U)O rdered By: Zeke Leija on 05-13-2022 Phencyclidine Ql (U) Negative Negative [facility] Chely Ag Negativeon 05-13-20 22 Chely Ag Negative Negative Normal Negative [facility] Comment on above: Result Comment: This is a duplicate Chely SARS Antigen (RASHAUN) result to be used for statistical tracking purpose only. PERFORMED BY: [place] [address] PATHOLOGIST VENEER JOINTER OPERATOR WALTER CEE M.D. Performed By: #### C OVID-19 CHELY, SOFIANEG #### [facility] [address] [place] [address] Urine cocaine detectionOrder ed By: Zeke Leija on 05-13-2022 Cocaine Ql (U) Negative Negative [facility] Albumin [Mass/volume] in Ser um or PlasmaOrdered By: Colton Rushing on 05-11-2022 Albumin [Mass/Vol] 4.3 g/dL Normal 3.2-5.5 [facility] Comment on above: Performed By: #### C BC, ETOH, CMP #### [address] Amphetamine Screen Ql (U)Ord ered By: Colton Rushing on 05-11-2022 Amphetamines Ql (U) Negative Negative [facility] Automated basophil %Ordered By: Colton Rushing on 05-11-2022 Basophils/100 WBC (Bld) 0.4 % Normal . [facility] Comment on above: Performed By: #### C BC, ETOH, CMP #### [address] Automated basophil countOrde red By: Colton Rushing on 05-11-2022 Basophils (Bld) [#/Vol] 0.0 10*3/uL Normal 0.0-0.2 [facility] Comment on above: Result Comment: PERF ORMED BY: [place] [address] PATHOLOGIST VENEER JOINTER OPERATOR WALTER CEE M.D. Performed By: #### C BC, ETOH, CMP #### [address] Automated blood lymphocyte c ount (number/volume)Ordered By: Colton Rushing on 05-11-2022 Lymphocytes (Bld) [#/Vol] 1.4 10*3/uL Normal 1.00-4.8 [facility] Comment on above: Performed By: #### C BC, ETOH, CMP #### [address] Automated blood lymphocyte c ount as percentage of total leukocytesOrdered By: Colton Rushing on 05-11-2022 Lymphocytes/100 WBC (Bld) 14.8 % Normal . [facility] Comment on above: Performed By: #### C BC, ETOH, CMP #### [address] Automated blood monocyte cou ntOrdered By: Colton Rushing on 05-11-2022 Monocytes (Bld) [#/Vol] 0.6 10*3/uL Normal 0.0-0.8 [facility] Comment on above: Performed By: #### C BC, ETOH, CMP #### [address] Automated blood platelet cou nt (count/volume)Ordered By: Colton Rushing on 05-11-2022 Platelets (Bld) [#/Vol] 344 10*3/uL Normal 150-450 [facility] Comment on above: Performed By: #### C BC, ETOH, CMP #### [address] Automated blood platelet augustine n volume measurementOrdered By: Colton Rushing on 05-11-2022 Platelet mean volume (Bld) [Entitic vol] 8.1 fL Normal 6.3-10.7 [facility] Comment on above: Performed By: #### C BC, ETOH, CMP #### [address] Automated eosinophil %Ordere d By: Colton Rushing on 05-11-2022 Eosinophils/100 WBC (Bld) 0.2 % Normal . [facility] Comment on above: Performed By: #### C BC, ETOH, CMP #### [address] Automated eosinophil countOr dered By: Colton Rushing on 05-11-2022 Eosinophils (Bld) [#/Vol] 0.0 10*3/uL Normal 0.0-0.45 [facility] Comment on above: Performed By: #### C BC, ETOH, CMP #### [address] Automated erythrocyte distri bution width ratioOrdered By: Colton Rushing on 05-11-2022 Erythrocyte distribution width (RBC) [Ratio] 13.6 % Normal 11.9-15.3 [facility] Comment on above: Performed By: #### C BC, ETOH, CMP #### [address] Automated erythrocyte mean c orpuscular hemoglobin (mass per erythrocyte)Ordered By: Colton Rushing on 05-11-2022 MCH (RBC) [Entitic mass] 29.0 pg Normal 24.7-34.3 [facility] Comment on above: Performed By: #### C BC, ETOH, CMP #### [address] Automated erythrocyte mean c orpuscular volumeOrdered By: Colton Rushing on 05-11-2022 MCV (RBC) [Entitic vol] 86.4 fL Normal 80-100 [facility] Comment on above: Performed By: #### C BC, ETOH, CMP #### [address] Automated erythrocytes count in urine sediment (number/area)Ordered By: Colton Rushing on 05-11-2022 RBC Auto (Urine sed) [#/Area] 1-2 [HPF] 0-4 [facility] Automated leukocytes count i n urine sediment (number/area)Ordered By: Colton Rushing on 05-11-2022 WBC Auto (Urine sed) [#/Area] 50-100 [HPF] 0-4 [facility] Automated monocyte %Ordered By: Colton Rushing on 05-11-2022 Monocytes/100 WBC (Bld) 6.4 % Normal . [facility] Comment on above: Performed By: #### C BC, ETOH, CMP #### [address] Automated neutrophil %Ordere d By: Colton Rushing on 05-11-2022 Neutrophils/100 WBC (Bld) 78.2 % Normal . [facility] Comment on above: Performed By: #### C BC, ETOH, CMP #### [address] Barbiturates [Presence] in U rineOrdered By: Colton Rushing on 05-11-2022 Barbiturates Ql (U) Negative Negative [facility] Benzodiazepines [Presence] i n UrineOrdered By: Colton Rushing on 05-11-2022 Benzodiazepines Ql (U) Negative Negative [facility] Bilirubin Test strip Ql (U)O rdered By: Colton Rushing on 05-11-2022 Bilirubin Ql (U) Negative Negative [facility] Blood erythrocytes automated count (number/volume)Ordered By: Colton Rushing on 05-11-2022 RBC (Bld) [#/Vol] 5.24 10*6/uL High 3.60-5.00 [facility] Comment on above: Performed By: #### C BC, ETOH, CMP #### [address] Blood hemoglobin measurement (mass/volume)Ordered By: Colton Rushing on 05-11-2022 Hemoglobin (Bld) [Mass/Vol] 15.2 g/dL Normal 11.8-15.4 [facility] Comment on above: Performed By: #### C BC, ETOH, CMP #### [address] Blood leukocytes automated c ount (number/volume)Ordered By: Colton Rushing on 05-11-2022 WBC (Bld) [#/Vol] 9.6 10*3/uL Normal 4.5-11.0 [facility] Comment on above: Performed By: #### C BC, ETOH, CMP #### [address] Blood neutrophil count by au tomated method (number/volume)Ordered By: Colton Rushing on 05-11-2022 Neutrophils (Bld) [#/Vol] 7.5 10*3/uL Normal 1.8-7.7 [facility] Comment on above: Performed By: #### C BC, ETOH, CMP #### [address] COVID-19 Antigenon 2 COVID-19 Antigen Healthcare [...] developed and its performance characteristic determined by [employer] and validated at [facility]. This test has not been FDA [...] for SARS Antigen by RASHAUN PERFORMED BY: [place] [address] PATHOLOGIST VENEER JOINTER OPERATOR WALTER CEE M.D. [facility] Comment on above: Performed By: #### S OPAL, COVID-19 CHELY #### [address] COVID-19 SOFIAOrdered By: Kayla Rushing on 05-11-2022 SARS-CoV+SARS-CoV-2 (COVID-19) Ag IA.rapid Ql (Resp) Negative Negative [facility] Comment on above: This is a duplicate Chely SARS Antigen (RASHAUN) result to be used for statistical tracking purpose only. Cannabinoids [Presence] in U rine by Screen methodOrdered By: Colton Rushing on 05-11-2022 Cannabinoids Screen Ql (U) Negative Negative [facility] Comment on above: These are unconfirme [...] (Urine sed) None seen [LPF] None Seen [facility] Color Auto (U)Ordered By: Kayla Rushing on 05-11-2022 Color (U) Yellow Yellow [facility] Complete Blood Count Auto Di ffon 05-11-2022 Mean Corpuscular HGB Conc 33.6 g/dL Normal 32.0-35.0 [facility] Comment on above: Performed By: #### C BC, ETOH, CMP #### [address] Complete Blood Count Auto Di ffOrdered By: Colton Rushing on 05-11-2022 Nucleated RBC/100 WBC (Bld) [Ratio] 0.1 % Normal 0-0.5 [facility] Comment on above: Performed By: #### C BC, ETOH, CMP #### [facility] [address] [place] [address] Comprehensive Metabolic Pane oralia 05-11-2022 ALT [Catalytic activity/Vol] 29 U/L Normal 10-60 [facility] Comment on above: Performed By: #### C BC, ETOH, CMP #### [facility] [address] [place] [address] [place] Creatinine Clr Calc Pharmacy 71.91 Normal [facility] Comment on above: Result Comment: PERF ORMED BY: [place] [address] PATHOLOGIST VENEER JOINTER OPERATOR WALTER CEE M.D. Performed By: #### C BC, ETOH, CMP #### [address] Estimated GFR ( Kirsten > 60 Normal [facility] Comment on above: Result Comment: GFR estimated reference range: According to KDOQI guidelines, <60 ml/min/1.73m2 is sufficient to diagnose a patient with chronic kidney disease. Performed By: #### C BC, ETOH, CMP #### [facility] [address] [place] [address] [place] Estimated GFR (Non- Am 58 Normal [facility] Comment on above: Performed By: #### C BC, ETOH, CMP #### [facility] [address] [place] [address] [place] Dipstick and Microscopicon 0 05-11-2022 Appearance (U) Cloudy Critically abnormal Clear [facility] Comment on above: Order Comment: Name Collection Type:: Clean-Voided Midstream Performed By: #### U RDS, CUU, UHCG, ADDONUAPLUS #### [address] Bacteria,Urine 1+ High None Seen [facility] Comment on above: Order Comment: Name Collection Type:: Clean-Voided Midstream Performed By: #### U RDS, CUU, UHCG, ADDONUAPLUS #### [facility] [address] [place] [address] [place] Bilirubin,Urine Negative Normal Negative [facility] Comment on above: Order Comment: Name Collection Type:: Clean-Voided Midstream Performed By: #### U RDS, CUU, UHCG, ADDONUAPLUS #### [facility] [address] [place] [address] [place] Color (U) Yellow Normal Yellow [facility] Comment on above: Order Comment: Name Collection Type:: Clean-Voided Midstream Performed By: #### U RDS, CUU, UHCG, ADDONUAPLUS #### [facility] [address] [place] [address] [place] Glucose Ql (U) Normal Normal Normal [facility] Comment on above: Order Comment: Name Collection Type:: Clean-Voided Midstream Performed By: #### U RDS, CUU, UHCG, ADDONUAPLUS #### [facility] [address] [place] [address] [place] Hyaline Casts,Urine 0-8 Normal 0-8 [facility] Comment on above: Order Comment: Name Collection Type:: Clean-Voided Midstream Performed By: #### U RDS, CUU, UHCG, ADDONUAPLUS #### [facility] [address] Ketones Ql (U) 1+ High Negative [facility] Comment on above: Order Comment: Name Collection Type:: Clean-Voided Midstream Performed By: #### U RDS, CUU, UHCG, ADDONUAPLUS #### [facility] [address] [place] [address] Leukocyte esterase Test strip Ql (U) 4+ High Negative [facility] Comment on above: Order Comment: Name Collection Type:: Clean-Voided Midstream Performed By: #### U RDS, CUU, UHCG, ADDONUAPLUS #### [facility] [address] [place] [address] Mucus,Urine 3+ Critically abnormal [facility] Comment on above: Order Comment: Name Collection Type:: Clean-Voided Midstream Performed By: #### U RDS, CUU, UHCG, ADDONUAPLUS #### [facility] [address] [place] [address] [place] Nitrite,Urine Negative Normal Negative [facility] Comment on above: Order Comment: Name Collection Type:: Clean-Voided Midstream Performed By: #### U RDS, CUU, UHCG, ADDONUAPLUS #### [facility] [address] [place] [address] [place] Occult Blood,Urine Trace High Negative [facility] Comment on above: Order Comment: Name Collection Type:: Clean-Voided Midstream Performed By: #### U RDS, CUU, UHCG, ADDONUAPLUS #### [facility] [address] [place] [address] Other Casts,Urine None Seen Normal None Seen [facility] Comment on above: Order Comment: Name Collection Type:: Clean-Voided Midstream Performed By: #### U RDS, CUU, UHCG, ADDONUAPLUS #### [facility] [address] [place] [address] [place] pH (U) 5.5 [pH] Normal 5.0-9.0 [facility] Comment on above: Order Comment: Name Collection Type:: Clean-Voided Midstream Performed By: #### U RDS, CUU, UHCG, ADDONUAPLUS #### [facility] [address] [place] [address] Protein,Urine Negative Normal Negative [facility] Comment on above: Order Comment: Name Collection Type:: Clean-Voided Midstream Performed By: #### U RDS, CUU, UHCG, ADDONUAPLUS #### [facility] [address] [place] [address] RBC,Urine 1-2 Normal 0-4 [facility] Comment on above: Order Comment: Name Collection Type:: Clean-Voided Midstream Performed By: #### U RDS, CUU, UHCG, ADDONUAPLUS #### [facility] [address] [place] [address] Specificy [place],Urine 1.011 Normal 1.001-1.030 [facility] Comment on above: Order Comment: Name Collection Type:: Clean-Voided Midstream Performed By: #### U RDS, CUU, UHCG, ADDONUAPLUS #### [facility] [address] [place] [address] Squamous Epithelial Cell,Urine 10-19 High 0-2 [facility] Comment on above: Order Comment: Name Collection Type:: Clean-Voided Midstream Performed By: #### U RDS, CUU, UHCG, ADDONUAPLUS #### [facility] [address] [place] [address] Urobilinogen,Urine Normal Normal Normal [facility] Comment on above: Order Comment: Name Collection Type:: Clean-Voided Midstream Performed By: #### U RDS, CUU, UHCG, ADDONUAPLUS #### [facility] [address] [place] [address] WBC,Urine 50-100 High 0-4 [facility] Comment on above: Order Comment: Name Collection Type:: Clean-Voided Midstream Performed By: #### U RDS, CUU, UHCG, ADDONUAPLUS #### [address] Yeast,Urine None Seen Normal None Seen [facility] Comment on above: Order Comment: Name Collection Type:: Clean-Voided Midstream Performed By: #### U RDS, CUU, UHCG, ADDONUAPLUS #### [address] Drug Screen,Urineon 05-11-20 Amphetamine Screen,Urine Negative Normal Negative [facility] Comment on above: Performed By: #### U RDS, CUU, UHCG, ADDONUAPLUS #### [address] Barbiturate Screen,Urine Negative Normal Negative [facility] Comment on above: Performed By: #### U RDS, CUU, UHCG, ADDONUAPLUS #### [address] Benzodiazepines Screen,Urine Negative Normal Negative [facility] Comment on above: Performed By: #### U RDS, CUU, UHCG, ADDONUAPLUS #### [address] Cannabinoid Screen,Urine Negative Normal Negative [facility] Comment on above: Result Comment: Thes e are unconfirmed results and should not be used for legal purposes. Drug Cut-Off Concentration: AMPH 1000 ng/mL NIMISHA 200 ng/mL NEELA 200 ng/mL COCM 300 ng/mL OP 300 ng/mL PCP 25 ng/mL THC 20 ng/mL PERFORMED BY: [place] [address] PATHOLOGIST VENEER JOINTER OPERATOR WALTER CEE M.D. Performed By: #### U RDS, CUU, UHCG, ADDONUAPLUS #### [address] Cocaine Screen,Urine Negative Normal Negative [facility] Comment on above: Performed By: #### U RDS, CUU, UHCG, ADDONUAPLUS #### [facility] [address] Opiate Screen,Urine Negative Normal Negative [facility] Comment on above: Performed By: #### U RDS, CUU, UHCG, ADDONUAPLUS #### [facility] [address] Phencyclidine Screen,Urine Negative Normal Negative [facility] Comment on above: Performed By: #### U RDS, CUU, UHCG, ADDONUAPLUS #### [facility] [address] Estimated glomerular filtrat ion rate (GFR) non- AmericanOrdered By: Colton Rushing on 05-11-2022 GFR/1.73 sq M.predicted among non-blacks MDRD (S/P/Bld) [Vol rate/Area] 58 mL/Min [facility] Ethyl Alcohol Profileon 04-25 Percent Ethanol Not performed Normal [facility] Comment on above: Result Comment: PERF ORMED BY: [place] [address] PATHOLOGIST VENEER JOINTER OPERATOR WALTER CEE M.D. Performed By: #### C BC, ETOH, CMP #### [facility] [address] [place] [address] HCG ( test) IA.rapi d Ql (U)Ordered By: Colton Rushing on 05-11-2022 HCG ( test) Ql (U) Negative [facility] [facility] HCG,Urineon 05-11-2022 Beta HCG ( test) Ql (U) Negative Normal [facility] Comment on above: Order Comment: Name Collection Type:: Clean-Voided Midstream Result Comment: PERF ORMED BY: [place] [address] PATHOLOGIST VENEER JOINTER OPERATOR WALTER CEE M.D. Performed By: #### C OVID-19 CHELY, SOFIANEG #### [facility] [address] [place] [address] Hematocrit [Volume Fraction] of Blood by Automated countOrdered By: Colton Rushing on 05-11-2022 Hematocrit (Bld) [Volume fraction] 45.2 % Normal 34.0-46.4 [facility] Comment on above: Performed By: #### C BC, ETOH, CMP #### [facility] [address] Ketones Auto test strip (U) [Mass/Vol]Ordered By: Colton Rushing on 05-11-2022 Ketones (U) [Mass/Vol] 1+ Negative [facility] - Drug toxicology Ordered By: Colton Rushing on 05-11-2022 Opiates Ql (U) Negative Negative [facility] Laboratory - UrinalysisOrder ed By: Colton Rushing on 05-11-2022 Hyaline casts LM Ql (Urine sed) 0-8 [LPF] 0-8 [facility] MCHC Auto (RBC) [Mass/Vol]Or dered By: Colton Rushing on 05-11-2022 MCHC (RBC) [Mass/Vol] 33.6 g/dL 32.0-35.0 [facility] Mucus LM Ql (Urine sed)Order ed By: Colton Rushing on 05-11-2022 Mucus Ql (Urine sed) 3+ [LPF] [facility] Nitrite Test strip Ql (U)Ord ered By: Colton Rushing on 05-11-2022 Nitrite Ql (U) Negative Negative [facility] No Panel InformationOrdered By: Colton Rushing on 05-11-2022 Estimated GFR () > 60 mL/Min [facility] Comment on above: GFR estimated refere nce range: According to KDOQI guidelines, <60 ml/min/1.73m2 is sufficient to diagnose a patient with chronic kidney disease. Pharmacy Creatinine Clearance (Chem 71.91 [facility] SARS Antigen (LFIA) [facility] Phencyclidine Screen Ql (U)O rdered By: Colton Rushing on 05-11-2022 Phencyclidine Ql (U) Negative Negative [facility] Protein Auto test strip (U) [Mass/Vol]Ordered By: Colton Rushing on 05-11-2022 Protein (U) [Mass/Vol] Negative Negative [facility] Protein [Mass/volume] in Ser um or PlasmaOrdered By: Colton Rushing on 05-11-2022 Protein [Mass/Vol] 7.4 g/dL Normal 6.1-7.9 [facility] Comment on above: Performed By: #### C BC, ETOH, CMP #### [address] Serum globulin measurement b y calculation (mass/volume)Ordered By: Colton Rushing on 05-11-2022 Globulin (S) [Mass/Vol] 3.1 g/dL Normal F [facility] Comment on above: Performed By: #### C BC, ETOH, CMP #### [address] Serum or plasma alanine avila otransferase measurement without P-5'-P (enzymatic activiOrdered By: Colton Rushing on 05-11-2022 ALT No additional P-5'-P [Catalytic activity/Vol] 29 U/L 10-60 [facility] Serum or plasma albumin/glob ulin mass ratioOrdered By: Colton Rushing on 05-11-2022 Albumin/Globulin [Mass ratio] 1.4 {ratio} Normal [facility] Comment on above: Performed By: #### C BC, ETOH, CMP #### [address] Serum or plasma alkaline sydney sphatase measurement (enzymatic activity/volume)Ordered By: Colton Rushing on 05-11-2022 ALP [Catalytic activity/Vol] 56 U/L Normal 32-92 [facility] Comment on above: Performed By: #### C BC, ETOH, CMP #### [address] Serum or plasma anion gap de terminationOrdered By: Colton Rushing on 05-11-2022 Anion gap [Moles/Vol] 16.2 mmol/L High 6.0-15.[address] [facility] Comment on above: Performed By: #### C BC, ETOH, CMP #### [address] Serum or plasma aspartate am inotransferase measurement (enzymatic activity/volume)Ordered By: Colton Rushing on 05-11-2022 AST [Catalytic activity/Vol] 22 U/L Normal 10-42 [facility] Comment on above: Performed By: #### C BC, ETOH, CMP #### [facility] [address] Serum or plasma calcium alina urement (mass/volume)Ordered By: Colton Rushing on 05-11-2022 Calcium [Mass/Vol] 9.5 mg/dL Normal 8.2-10.2 [facility] Comment on above: Performed By: #### C BC, ETOH, CMP #### [facility] [address] Serum or plasma chloride augustine surement (moles/volume)Ordered By: Colton Rushing on 05-11-2022 Chloride [Moles/Vol] 103 mmol/L Normal 95-114 [facility] Comment on above: Performed By: #### C BC, ETOH, CMP #### [address] Serum or plasma creatinine m easurement with calculation of estimated glomerular filtrOrdered By: Colton Rushing on 05-11-2022 Creatinine [Mass/Vol] 1.03 mg/dL Normal 0.44-1.03 [facility] Comment on above: Performed By: #### C BC, ETOH, CMP #### [address] Serum or plasma ethanol alina urement (mass/volume)Ordered By: Colton Rushing on 05-11-2022 Ethanol [Mass/Vol] mg/dL Normal [facility] Comment on above: Performed By: #### C BC, ETOH, CMP #### [address] Ethanol [Mass/Vol] TNP [facility] Comment on above: Test not performed Serum or plasma glucose alina urement (mass/volume)Ordered By: Colton Rushing on 05-11-2022 Glucose [Mass/Vol] 112 mg/dL High 70-100 [facility] Comment on above: ADA recommended refe rence range Random Glucose Reference Range is dependent on time and content of last meal. Glucose of more than 200 mg/dL in a nonstressed, ambulatory subject supports the diagnosis of Diabetes Mellitus. Result Comment: [place] Glucose Reference Range is dependent on time and content of last meal. Glucose of more than 200 mg/dL in a nonstressed, ambulatory subject supports the diagnosis of Diabetes Mellitus. ADA recommended reference range Performed By: #### C BC, ETOH, CMP #### [address] Serum or plasma potassium me asurement (moles/volume)Ordered By: Colton Rushing on 05-11-2022 Potassium [Moles/Vol] 3.5 mmol/L Normal 3.5-5.1 [facility] Comment on above: Performed By: #### C BC, ETOH, CMP #### [address] Serum or plasma sodium measu rement (moles/volume)Ordered By: Colton Rushing on 05-11-2022 Sodium [Moles/Vol] 136 mmol/L Normal 136-146 [facility] Comment on above: Performed By: #### C BC, ETOH, CMP #### [address] Serum or plasma total biliru bin measurement (mass/volume)Ordered By: Colton Rushing on 05-11-2022 Bilirubin [Mass/Vol] 1.0 mg/dL Normal 0.3-1.2 [facility] Comment on above: Performed By: #### C BC, ETOH, CMP #### [address] Serum or plasma total carbon dioxide measurement (moles/volume)Ordered By: Colton Rushing on 05-11-2022 CO2 [Moles/Vol] 20.3 mmol/L Low 22.0-30.0 [facility] Comment on above: Performed By: #### C BC, ETOH, CMP #### [address] Serum or plasma urea nitroge n measurement (mass/volume)Ordered By: Colton Rushing on 05-11-2022 Urea nitrogen [Mass/Vol] 6 mg/dL Low 9-23 [facility] Comment on above: Performed By: #### C BC, ETOH, CMP #### [facility] [address] Chely Ag Negativeon 05-11-20 Chely Ag Negative Negative Normal Negative [facility] Comment on above: Result Comment: This is a duplicate [place] SARS Antigen (RASHAUN) result to be used for statistical tracking purpose only. PERFORMED BY: [place] [address] PATHOLOGIST VENEER JOINTER OPERATOR WALTER CEE M.D. Performed By: #### S OFIANEG, COVID-19 CHELY #### [facility] [address] [place] [address] Specific gravity Auto test s trip (U) [Rel density]Ordered By: Colton Rushing on 05-11-2022 Specific gravity (U) [Rel density] 1.011 1.001-1.030 [facility] Squamous epithelial cells de tection in urine sediment by light microscopyOrdered By: Colton Rushing on 05-11-2022 Epithelial cells.squamous LM Ql (Urine sed) 10-19 [HPF] 0-2 [facility] Urine Cultureon 05-11-2022 Bacteria identified Cx Nom (U) >100,000 colonies/ml mixed bacterial skin contaminants 2 Days PERFORMED BY: [place] [address] PATHOLOGIST VENEER JOINTER OPERATOR WALTER CEE M.D. Normal [facility] Comment on above: Performed By: #### C OVID-19 CHELY, SOFIANEG #### [facility] [address] [place] [address] Urine bacteria detection by automated methodOrdered By: Colton Rushing on 05-11-2022 Bacteria Auto Ql (U) 1+ None Seen [facility] Urine clarity by refractomet ry automatedOrdered By: Colton Rushing on 05-11-2022 Clarity Refractometry automated (U) Cloudy Clear [facility] Urine cocaine detectionOrder ed By: Colton Rushing on 05-11-2022 Cocaine Ql (U) Negative Negative [facility] Urine glucose measurement by automated test strip (mass/volume)Ordered By: Colton Rushing on 05-11-2022 Glucose Auto test strip (U) [Mass/Vol] Normal mg/dL Normal [facility] Urine hemoglobin detection b y automated test stripOrdered By: Colton Rushing on 05-11-2022 Hemoglobin Auto test strip Ql (U) Trace Negative [facility] Urine leukocyte esterase det ection by automated test stripOrdered By: Colton Rushing on 05-11-2022 Leukocyte esterase Auto test strip Ql (U) 4+ Negative [facility] Urobilinogen Auto test strip (U) [Mass/Vol]Ordered By: Colton Rushing on 05-11-2022 Urobilinogen (U) [Mass/Vol] Normal mg/dL Normal [facility] Yeast detection in urine sed iment by light microscopyOrdered By: Colton Rushing on 05-11-2022 Yeast LM Ql (Urine sed) None seen [HPF] None Se en [facility] pH Auto test strip (U)Ordere d By: Colton Rushing on 05-11-2022 pH (U) 5.5 [pH] 5.0-9.0 [facility] Screening Mammogram, Charanjit ledbetter 05-03-2022 Screening [...] IS VERY IMPORTANT TO YOUR HEALTH. CURRENT [employer] GUIDELINES RECOMMENDS ANNUAL MAMMOGRAPHY BEGINNING AT AGE 39. THIS FACILITY USUALLY USES A REMINDER SYSTEM TO ENSURE ALL POSITIONS RECEIVED REMINDER NOTIFICATIONS AT THE TIME BASED ON THE RECOMMENDATIONS OF THIS EXAM. Report reported and signed by Mychal Carranza on 05/03/2022 1713 Normal [facility]pper Vital Signs Date Time Vital Sign Value Performing Clinician Quinton kelly 05-13-2022 18:10-0400 Diastolic blood pressure 89 mm[Hg] PHYSICIAN NO [facility] 05-13-2022 18:10-0400 Heart rate 89 /min PHYSICIAN NO [facility] 05-13-2022 18:10-0400 Respiratory rate 17 /min PHYSICIAN NO [facility] 05-13-2022 18:10-0400 SaO2% (BldA) [Mass fraction] 95 % PHYSICIAN NO [facility] 05-13-2022 18:10-0400 Systolic blood pressure 131 mm[Hg] PHYSICIAN NO [facility] 05-13-2022 17:15-0400 Body height 167.64 cm PHYSICIAN NO [facility] 05-13-2022 17:15-0400 Body temperature 98.8 [degF] PHYSICIAN NO [facility] 05-13-2022 17:15-0400 Body weight 72 kg PHYSICIAN NO [facility] 05-11-2022 17:34-0400 Body height 167.64 cm PHYSICIAN NO [facility] 05-11-2022 17:34-0400 Body temperature 98.9 [degF] PHYSICIAN NO [facility] 05-11-2022 17:34-0400 Body weight 72.75 kg PHYSICIAN NO [facility] 05-11-2022 17:34-0400 Diastolic blood pressure 93 mm[Hg] PHYSICIAN NO [facility] 05-11-2022 17:34-0400 Heart rate 123 /min PHYSICIAN NO [facility] 05-11-2022 17:34-0400 Respiratory rate 20 /min PHYSICIAN NO [facility] 05-11-2022 17:34-0400 SaO2% (BldA) [Mass fraction] 95 % PHYSICIAN NO [facility] 05-11-2022 17:34-0400 Systolic blood pressure 149 mm[Hg] PHYSICIAN NO [facility] Encounters Encounter Date Encounter Type Care Provider Facility Start: 05-13-2022 End: 05-17-2022 Evaluation and management of inpatient Nigelkj Jason Facility:[facility] Start: 05-13-2022 Evaluation and management of inpatient PHYSICIAN NO [facility] Start: 05-11-2022 End: 05-11-2022 Emergency department patient visit Colton Rushing Facility:[facility] Start: 05-11-2022 End: 05-11-2022 Emergency department patient visit PHYSICIAN NO [facility] Procedures Date Procedure Procedure Detail Performing Clinician SARS Antigen (LFIA) PHYSICIA N NO FAMILY SARS Antigen (LFIA) PHYSICIA N NO FAMILY Plan of Treatment Date Care Activity Detail Author Bacteria identified in Urine by Culture [facility] Patient Education Suicide Preven tion Depression, Adult ED [facility] Work Phone: Patient referral [facility] Work Phone: Urine culture Urine Culture [facility] Immunizations Immunization Date Immunization Notes Care Provider Fa cility 05-11-2022 tetanus toxoid, redu leandro diphtheria toxoid, and acellular pertussis vaccine, adsorbed PHYSICIAN NO [facility] Payers Date Payer Category Payer Unknown [id number] 2022 Unknown [id number] 2022 Private Health Insurance [id number] 2022 Self-pay Medicaid [facility] [id number] Unknown [id number] Unknown [id number] Social History Date Type Detail Facility Start: 05-11-2022 End: 05-13-2022 Tobacco smoking status NHIS Smoker (finding) [facility] Start: 1980 Sex Assigned At Female F [facility] Chief complaint+Reason for visit Narrative Note Date & Type Note Facility Chief complaint+Reason for visit Narrative Reason for Visit Acute anxiety Depression Suicidal ideation [facility] Work Phone: Evaluation note Note Date & Type Note Facility Evaluation note No assessment information availa ble [facility] Work Phone: Evaluation note Note Date & Type Note Facility Evaluation note Diagnosis Onset Date Acute anxiety acute Depression acute Suicidal ideation acute [facility] Work Phone: Summary Purpose Family History No Family History Records FoundNo Family History Records Found Advance Directives No Advanced Directives Records Found Advance Directive Response Recorded Date/ Time Advance Directives No April 5:46pm Chief Complaint and Reason for Visit Chief Complaint Mental eval Additional Source Comments INFORMATION SOURCE (unrecogn ized section and content) DATE CREATED AUTHOR 05/04/2022 [facility] Me dical Specialist DATE CREATED AUTHOR AUTHOR'S ORGANIZ ATION 02/22/2023 [facility] Care Teams (unrecognized sec tion and content) [...] BE BASED ON THE PRIMARY CLINICAL RECORDS. [employer] [facility]. provides no warranty or guarantee of the accuracy or completeness of information in this document.
[2024-07-20 07:23] LABS: Alanine Aminotransferase 27 U/L (14-59); Albumin Level 3.4 g/dL (3.4-5.0); Alkaline Phosphatase 70 U/L (46-116); Aspartate Amino Transferase 13 U/L (15-37); BUN Creatinine Ratio 10.5; Bilirubin Total 0.4 mg/dL (0.2-1.0); Calcium 8.7 mg/dL (8.5-10.1); Chloride 104 mmol/L (98-107); Estimated GFR (African America 52 (>=60 mL/min/1.73m^2); Estimated GFR (Non-African Ame 43 (>=60 mL/min/1.73m^2); Free T3 1.84 pg/mL (2.18-3.98); Globulin 3.3 g/dL; Glucose 96 mg/dL (74-106); Sodium 140 mmol/L (136-145); Thyroid Stimulating Hormone 4.252 uIU/mL (0.358-3.740); Total Protein 6.7 g/dL (6.4-8.2)
== END 2024-07-20 06:40 | disposition home or self-care (01) ==
LOC: LAB 06:41
PROVIDERS: PCP Nurse Practitioner Family; Visit Provider Nurse Practitioner Family
DX: R79.89 Other specified abnormal findings of blood chemistry (principal); N28.9 Disorder of kidney and ureter, unspecified
CPT/HCPCS: 36415; 80053; 84436; 84443; 84481